=== PATIENT | female | born 1995 | race American Indian/Alaskan Native ===

== ENCOUNTER 2019-09-07 21:45 | Emergency (ER) | payer SELFPAY ==
--- NOTE | 2019-09-07 23:01 | XRay Report ---
CHEST 1 VIEW INDICATION / CLINICAL INFORMATION: Chest Pain. COMPARISON: None available. FINDINGS: SUPPORT DEVICES: None. HEART / MEDIASTINUM: No significant abnormality. LUNGS / PLEURA: No significant pulmonary or pleural abnormality. No pneumothorax. ADDITIONAL FINDINGS: No significant additional findings. IMPRESSION: 1. No acute findings. Signer Name: Cici Dela Cruz MD Signed: 09/07/2019 10:56 PM Workstation Name: [id number]
--- NOTE | 2019-09-07 23:36 | Emergency Department Report ---
HPI - General Chief Complaint: Chest Pain Time Seen by Provider: 09/07/19 23:24 - [facility] HPI: Room 3 The patient is a 24-year-old female present with a chief complaint of chest pain. Patient states her pain began yesterday with central and left-sided chest pain described as burning and intermittent in nature. Patient denies shortness of breath, fever or cough. Patient denies pleurisy or recent flights/long car trips. The patient states she has noticed increased eructation. ED Past Medical Hx - Past Medical History Previous Medical History?: No - Surgical History Past Surgical History?: No - Family History Family history: no significant - Social History Smoking Status: Never Smoker Substance Use Type: None (Denies illicit drug use), Alcohol (Occasional) - Medications Home Medications: Home Medications Medication Instructions Recorded Confirmed Last Taken Type Famotidine [Pepcid] 20 mg PO BID #30 tablet 09/08/19 Unknown Rx ED Review of Systems ROS: Stated complaint: CHEST PAIN, HOT FLASHES Other details as noted in HPI Constitutional: denies: diaphoresis, fever Respiratory: no symptoms reported. denies: cough, shortness of breath Cardiovascular: chest pain Endocrine: no symptoms reported Gastrointestinal: other (Increase eructation) Genitourinary: denies: dysuria Musculoskeletal: denies: back pain Neurological: denies: headache Physical Exam - Physical Exam Vital Signs: Vital Signs 09/07/19 22:03 Temperature 97.5 F L Pulse Rate 96 H Respiratory 18 Rate Blood Pressure 137/79 [Right] O2 Sat by Pulse 99 Oximetry Physical Exam: GENERAL: The patient is well-developed well-nourished female lying on stretcher not appearing to be in acute distress. [] HEENT: Normocephalic. Atraumatic. Extraocular motions are intact. Patient has moist mucous membranes. NECK: Supple. Trachea midline CHEST/LUNGS: Clear to auscultation. There is no respiratory distress noted. HEART/CARDIOVASCULAR: Regular. There is no tachycardia. There is no gallop rub or murmur. ABDOMEN: Abdomen is soft, nontender. Patient has normal bowel sounds. There is no abdominal distention. SKIN: There is no rash. There is no edema. There is no diaphoresis. NEURO: The patient is awake, alert, and oriented. The patient is cooperative. The patient has normal speech MUSCULOSKELETAL: There is no evidence of acute injury. ED Course Vital Signs 09/07/19 22:03 Temperature 97.5 F L Pulse Rate 96 H Respiratory 18 Rate Blood Pressure 137/79 [Right] O2 Sat by Pulse 99 Oximetry ED Medical Decision Making - Lab Data Result diagrams: 09/07/19 23:34 09/07/19 23:34 Laboratory Tests 09/07/19 09/07/19 09/07/19 23:34 23:34 23:34 WBC 12.7 H RBC 4.52 Hgb 11.8 Hct 36.3 MCV 80 MCH 26 L MCHC 33 RDW 15.7 H Plt Count 286 Lymph % (Auto) 28.1 [place] % (Auto) 8.0 H Eos % (Auto) 0.2 Baso % (Auto) 0.5 Lymph # 3.6 [place]wood # 1.0 H Eos # 0.0 Baso # 0.1 Seg Neutrophils % 63.2 Seg Neutrophils # 8.1 H D-Dimer 682.11 H Sodium 139 Potassium 4.0 Chloride 102.9 Carbon Dioxide 23 Anion Gap 17 BUN 2 L Creatinine 0.6 L Estimated GFR > 60 BUN/Creatinine Ratio 3 Glucose 102 H Calcium 9.1 Total Creatine Kinase 81 CK-MB (CK-2) 1.0 CK-MB (CK-2) Rel Index 1.2 Troponin T 0.010 HCG, Qual 09/07/19 23:34 WBC RBC Hgb Hct MCV MCH MCHC RDW Plt Count Lymph % (Auto) [place]wood % (Auto) Eos % (Auto) Baso % (Auto) Lymph # Haywood # Eos # Baso # Seg Neutrophils % Seg Neutrophils # D-Dimer Sodium Potassium Chloride Carbon Dioxide Anion Gap BUN Creatinine Estimated GFR BUN/Creatinine Ratio Glucose Calcium Total Creatine Kinase CK-MB (CK-2) CK-MB (CK-2) Rel Index Troponin T HCG, Qual Negative - EKG Data -: EKG Interpreted by Me EKG shows normal: sinus rhythm Rate: normal - EKG Data When compared to previous EKG there are: previous EKG unavailable Interpretation: normal EKG - Radiology Data Radiology results: report reviewed (Chest x-ray, CT chest), image reviewed (Chest x-ray, CT chest) interpreted by me: Chest x-ray-no focal infiltrates, no pneumothorax [facility] [address] [place] [address] XRay Report Signed Patient: OMER SMITH MR#: [id number] : 1995 Acct:[id number] Age/Sex: 24 / F ADM Date: 09/07/19 Loc: ED Attending Dr: Ordering Physician: JUAN PABLO DAUGHERTY MD Date of Service: 09/07/19 Procedure(s): XR chest 1V ap Accession Number(s): [id number] cc: JUAN PABLO DAUGHERTY MD Fluoro Time In Minutes: CHEST 1 VIEW INDICATION / CLINICAL INFORMATION: Chest Pain. COMPARISON: None available. FINDINGS: SUPPORT DEVICES: None. HEART / MEDIASTINUM: No significant abnormality. LUNGS / PLEURA: No significant pulmonary or pleural abnormality. No pneumothorax. ADDITIONAL FINDINGS: No significant additional findings. IMPRESSION: 1. No acute findings. Signer Name: Cici Dela Cruz MD Signed: 09/07/2019 10:56 PM Workstation Name: [id number] Transcribed By: JR Dictated By: Cici Dela Cruz MD Electronically Authenticated By: Cici Dela Cruz MD Signed Date/Time: 09/07/192255 DD/ 54 TD/TT: [facility] [address] [place] [address] Cat Scan Report Signed Patient: OMER SMITH MR#: [id number] : 1995 Acct:[id number] Age/Sex: 24 / F ADM Date: 09/07/19 Loc: ED Attending Dr: Ordering Physician: MIROSLAVA GUTIERREZ MD Date of Service: 09/08/19 Procedure(s): CT angio chest Accession Number(s): [id number] cc: MIROSLAVA GUTIERREZ MD CTA CHEST WITH IV CONTRAST INDICATION: Chest pain, shortness of breath. TECHNIQUE: Axial CT images were obtained through the chest after injection of IV contrast. 3 plane MIP reconstructions were produced. All CT scans at this location are performed using CT dose reduction for ALARA by means of automated exposure control. COMPARISON: None available. FINDINGS: Pulmonary Arteries: No pulmonary emboli. Thoracic Aorta: No acute abnormality. Heart: Normal. Lungs: No acute air space or interstitial disease. Pleura: No pleural effusion. No pneumothorax. Lymph Nodes: No significant adenopathy. Additional Findings: None. Upper Abdomen: No acute findings. Skeletal Structures: No significant osseous abnormality. IMPRESSION: 1. No CT evidence for pulmonary embolism. 2. No acute findings. Signer Name: Rajinder Andrews MD Signed: 09/08/2019 1:04 AM Workstation Name: [id number] Transcribed By: JESUS Dictated By: Rajinder Andrews MD Electronically Authenticated By: Rajinder Andrews MD Signed Date/Time: 09/08/19103 DD/ TD/TT: - Differential Diagnosis GERD, pericarditis, PE, ACS Critical care attestation.: If time is entered above; I have spent that time in minutes in the direct care of this critically ill patient, excluding procedure time. 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 Please follow-up with him for further evaluation) Time of Disposition:
[2019-09-07 23:48] LABS: Basophils # (Auto) 0.1 K/mm3 (0.0-0.1); Basophils % (Auto) 0.5 % (0.0-1.8); Eosinophils % (Auto) 0.2 % (0.0-4.3); Hematocrit 36.3 % (30.3-42.9); Hemoglobin 11.8 gm/dl (10.1-14.3); Lymphocytes # (Auto) 3.6 K/mm3 (1.2-5.4); Lymphocytes % (Auto) 28.1 % (13.4-35.0); Mean Corpuscular HGB Conc 33 % (30-34); Mean Corpuscular Volume 80 fl (79-97); Platelet Count 286 K/mm3 (140-440); Red Blood Count 4.52 M/mm3 (3.65-5.03); Red Cell Distribution Width 15.7 % (13.2-15.2)
[2019-09-08 00:13] LABS: BUN/Creatinine Ratio 3; Blood Urea Nitrogen 2 mg/dL (7-17); Calcium 9.1 mg/dL (8.4-10.2)
[2019-09-08 00:14] LABS: Hemolysis Index 1
--- NOTE | 2019-09-08 01:08 | Cat Scan Report ---
CTA CHEST WITH IV CONTRAST INDICATION: Chest pain, shortness of breath. TECHNIQUE: Axial CT images were obtained through the chest after injection of IV contrast. 3 plane MIP reconstru ctions were produced. All CT scans at this location are performed using CT dose reduction for ALARA b y means of automated exposure control. COMPARISON: None available. FINDINGS: Pulmonary Arteries: No pulmonary emboli. Thoracic Aorta: No acute abnormality. Heart: Normal. Lungs: No acute air space or interstitial disease. Pleura: No pleural effusion. No pneumothorax. Lymph Nodes: No significant adenopathy. Additional Findings: None. Upper Abdomen: No acute findings. Skeletal Structures: No significant osseous abnormality. IMPRESSION: 1. No CT evidence for pulmonary embolism. 2. No acute findings. Signer Name: Rajinder Andrews MD Signed: 09/08/2019 1:04 AM Workstation Name: [id number]
[2019-09-08 01:32] VITALS: BP 139/75
== END 2019-09-08 01:44 | disposition home or self-care (01) ==
LOC: ED 21:45
DX: R07.89 Other chest pain (principal)
CPT/HCPCS: 36415; 71045; 71275; 80048; 82550; 82553; 84484; 84703; 85025; 85379; 93005; 99285; Q9967